=== PATIENT | female | born 1970 | race Caucasian/White ===

== ENCOUNTER 2016-12-28 11:28 | Emergency (ER) | payer OTHER ==
[~2016-12-28] VITALS: Ht 162.6 cm; Wt 100.0 kg
[2016-12-28 11:39] VITALS: Ht 162.6 cm; Wt 100.0 kg
[2016-12-28] MEDS ORDERED: morphine 4 MG/ML VIAL IV STA ×2 (12:33→13:40)
[2016-12-28] MEDS ORDERED: FAMOTIDINE 20 MG INJ IV STA (12:33)
[2016-12-28] MEDS ORDERED: ONDANSETRON 4 MG INJ IV STA ×2 (12:33→13:40)
--- NOTE | 2016-12-28 12:50 | ERD ---
ER Documentation Chief Complaint Date/Time DATE: 12/28/16 TIME: 12:47 Chief Complaint pt bib family with c/o abd pain starting few days ago, sent by PMD HPI This is a 46-year-old female who presents to the emergency department today complaining of diffuse abdominal pain that started last night. Patient states she also has nausea and diarrhea. States pain goes around her back as well. States she recently started taking Augmentin but she is unsure what for. Patient was sent here by her clinic and Pascual Le PA-C for further evaluation. Denies any fevers or chills. Denies any dysuria. ROS All systems reviewed and are negative except as per history of present illness. Medications Home Meds Active Scripts Ondansetron Hcl* (Zofran*) 4 Mg Tablet, 4 MG PO Q6H for NAUSEA AND/OR VOMITING, #30 TAB Prov:MEG DELGADO PA-C 12/28/16 Acetaminophen* (Tylophen*) 500 Mg Capsule, 1 CAP PO Q6H Y for PAIN AND OR ELEVATED TEMP, #30 CAP Prov:MEG DELGADO PA-C 12/28/16 Ibuprofen* (Motrin*) 600 Mg Tab, 600 MG PO Q6, #30 TAB Prov:MEG DELGADO PA-C 12/28/16 Hydrocodone/Acetaminophen (Flomot 5-325 Tablet) 1 Each Tablet, 1 TAB PO Q6H Y for PAIN, #12 TAB Prov:MEG DELGADO PA-C 12/28/16 Allergies Allergies: Coded Allergies: No Known Allergy (Unverified , 12/28/16) PMhx/Soc Medical and Surgical Hx: pt denies Medical Hx, pt denies Surgical Hx Hx Alcohol Use: Yes Hx Substance Use: No Hx Tobacco Use: No Smoking Status: Never smoker Physical Exam Vitals Vital Signs Date Time Temp Pulse Resp B/P Pulse Ox O2 Delivery O2 Flow Rate FiO2 12/28/16 11:39 98.3 86 16 142/70 99 Physical Exam Const: Obese, no acute distress Head: Atraumatic Eyes: Normal Conjunctiva ENT: Normal External Ears, Nose and Mouth. Neck: Full range of motion..~ No meningismus. Resp: Clear to auscultation bilaterally Cardio: Regular rate and rhythm, no murmurs Abd: Soft, diffuse abdominal tenderness worse in the epigastric and right upper quadrant region, non distended. Normal bowel sounds. No tenderness at McBurney's. Skin: No petechiae or rashes Back: No midline or flank tenderness. No CVA tenderness Neur: Awake and alert Psych: Normal Mood and Affect Result Diagram: 12/28/16 1250 12/28/16 1250 Results 24 hrs Laboratory Tests Test 12/28/16 12:50 White Blood Count 16.510^3/ul Red Blood Count 4.3610^6/ul Hemoglobin 13.3g/dl Hematocrit 39.2% Mean Corpuscular Volume 89.9fl Mean Corpuscular Hemoglobin 30.5pg Mean Corpuscular Hemoglobin Concent 33.9g/dl Red Cell Distribution Width 14.9% Platelet Count 04926^3/UL Mean Platelet Volume 10.5fl Neutrophils % 72.5% Lymphocytes % 17.5% Monocytes % 8.7% Eosinophils % 0.3% Basophils % 0.3% Nucleated Red Blood Cells % 0.0/100WBC Neutrophils # 12.010^3/ul Lymphocytes # 2.910^3/ul Monocytes # 1.410^3/ul Eosinophils # 0.110^3/ul Basophils # 0.110^3/ul Nucleated Red Blood Cells # 0.010^3/ul Urine Color YELLOW Urine Clarity SLIGHTLY CLOUDY Urine pH 8.5 Urine Specific [place] 1.015 Urine Ketones NEGATIVE Urine Nitrite NEGATIVE Urine Bilirubin NEGATIVE Urine Urobilinogen 0.2 E.U./dL Urine Leukocyte Esterase NEGATIVE Urine Microscopic RBC 0-2/HPF Urine Microscopic WBC 0-2/HPF Urine Epithelial Cells FEW Urine Amorphous Phosphates MANY Urine Bacteria MODERATE Urine Coarse Granular Casts RARE Urine Hemoglobin NEGATIVE Urine Glucose NEGATIVE% Urine Total Protein TRACE Sodium Level 143mmol/L Potassium Level 3.2mmol/L Chloride Level 99mmol/L Carbon Dioxide Level 29mmol/L Anion Gap 18 Blood Urea Nitrogen 8mg/dl Creatinine 0.61mg/dl Glucose Level 115mg/dl Calcium Level 9.0mg/dl Total Bilirubin 0.4mg/dl Direct Bilirubin 0.00mg/dl Indirect Bilirubin 0.4mg/dl Aspartate Amino Transf (AST/SGOT) 23IU/L Alanine Aminotransferase (ALT/SGPT) 36IU/L Alkaline Phosphatase 91IU/L Total Protein 7.5g/dl Albumin 4.0g/dl Globulin 3.50g/dl Albumin/Globulin Ratio 1.14 Lipase 67U/L Current Medications Medications (Trade) Dose Ordered Sig/Jamal Route PRN Reason Start Time Stop Time Status Last Admin Dose Admin Morphine Sulfate (morphine) 4 mg ONCE STAT IV 12/28/16 12:33 12/28/16 12:35 DC 12/28/16 12:47 Ondansetron HCl (Zofran Inj) 4 mg ONCE STAT IV 12/28/16 12:33 12/28/16 12:35 DC 12/28/16 12:46 Famotidine (Pepcid Iv) 20 mg ONCE STAT IV 12/28/16 12:33 12/28/16 12:35 DC 12/28/16 12:46 Morphine Sulfate (morphine) 4 mg ONCE STAT IV 12/28/16 13:40 12/28/16 13:41 DC 12/28/16 14:36 Ondansetron HCl (Zofran Inj) 4 mg ONCE STAT IV 12/28/16 13:40 12/28/16 13:41 DC 12/28/16 14:36 Potassium Chloride 40 meq 40 meq ONCE STAT PO 12/28/16 14:09 12/28/16 14:10 DC 12/28/16 14:36 Sodium Chloride (NS) 500 ml @ 500 mls/hr Q1H ONCE IV 12/28/16 15:00 12/28/16 15:59 12/28/16 15:01 DIAGNOSTIC IMAGING REPORT Patient: BANDAR CARTAGENA : 1970 Age: 46 Sex: F MR #: [id number] DOS: 12/28/16 1233 Ordering MD: MEG DELGADO PA-C Location: [facility] BEDS AT [facility] Room/Bed: PROCEDURE: CT abdomen and pelvis without contrast. CLINICAL INDICATION: Abdominal Pain TECHNIQUE: CT scan of the abdomen and pelvis without contrast was performed and is reconstructed at 2.5 mm contiguous axial intervals from the dome of the diaphragm to the inferior pubic rami.. The patient was scanned without intravenous contrast. Sagittal and coronal reformatted images were obtained from the axial source images. The calculated radiation dose measures 1259 mGy centimeters. The CTDI measures 20 mGy. COMPARISON: None. FINDINGS: The lung bases are clear of any infiltrate or nodule. No effusion is seen. The liver is of normal size, contour and attenuation with no mass or ductal dilatation. There are gallstones with probable sludge. No splenic, adrenal or pancreatic abnormalities present. Kidneys are of normal size and contour. No hydronephrosis, calculus or masses seen. Ureters are of normal course and caliber with no stone. No bladder mass or stone is present. Uterus and ovaries are normal. There is no aneurysm. No adenopathy is present. No bowel mass or obstruction is present. The appendix is normal. No phlegmon , ascites or pneumoperitoneum is visualized. The osseous structures are intact. IMPRESSION: No evidence of urolithiasis, obstructive uropathy, diverticulitis or appendicitis. .Ravi Baez MD, Date Time Electronically viewed and signed by .Ravi Baez MD, MD on 12/28/2016 13: 30 .A/ CC: MEG DELGADO PA-C Procedures/[facility] This is a 38-year-old female who presents to the emergency department today after being seen by her clinic and sent here for further evaluation. Patient had diffuse abdominal pain on physical exam however it was worse in the epigastric and right upper quadrant region. Given the diffuse nature of patient 's pain I did obtain laboratory work as well as imaging. Laboratory work shows an elevated white blood cell count of 16.5. She is not anemic. Platelets are within normal limits. Potassium is 3.2 otherwise electrolytes are within normal limits. Glucose is within normal limits. Liver function is within normal limits. Lipase is within normal limits. UA is negative for infection Urine test is negative CT abdomen and pelvis noncontrast shows gallstones with probable sludge. There are no splenic adrenal or pancreatic abnormalities. Kidneys are normal. There is no hydronephrosis, calculus or mass is seen. Uterus and ovaries are normal. There is no bowel mass or obstruction present appendix is normal. There is no evidence of diverticulitis or acute appendicitis. Given the patient's CT scan and inability to see gallbladder wall thickening or pericholecystic fluid I did obtain an ultrasound Ultrasound shows cholelithiasis with borderline gallbladder wall thickening. There is no evidence of pericholecystic fluid. Common bile duct measures 5 mm in maximal dimension there is mild hepatomegaly with fatty infiltration of the liver. No evidence of kidney stones or hydronephrosis on right kidney. There is no free fluid identified. Patient symptoms at this time was consistent with biliary colic. Low suspicion for acute surgical abdomen at this time. No evidence to suggest pancreatitis.I suspect patient's diarrhea may be caused by her Augmentin however may also be caused by viral illness. Patient was given morphine, Zofran and Pepcid here in the emergency department. Patient was complaining of some dizziness after the morphine and therefore I did give her half a liter of fluids. She will be given a prescription for Flomot , Zofran, Motrin and Tylenol for home At this time the patient is stable for discharge and outpatient management. Patient should follow up with their PCP in the next 1-2 days for referral to general surgery. They may return to the emergency department sooner for any persistent or worsening of symptoms. Patient understood and agreed with the plan. Discussed the patient with Dr. Welch and he is in agreement with the plan. Departure Diagnosis: Primary Impression: Biliary colic Additional Impression: Abdominal pain Abdominal location: generalized Qualified Code: R10.84 - Generalized abdominal pain Condition: Fair MGE DELGADO PA-C Dec 28, 2016 12:50
[2016-12-28 13:11] LABS: ADD SCAN DIFF NO
[2016-12-28 13:20] LABS: BASOPHIL # 0.1 10^3/ul (0.0-0.1); BASOPHILS % 0.3 % (0.0-2.0); EOSINOPHILS # 0.1 10^3/ul (0.0-0.5); EOSINOPHILS % 0.3 % (0.0-7.0); HEMATOCRIT 39.2 % (37.0-47.0); HEMOGLOBIN 13.3 g/dl (12.0-16.0); LYMPHOCYTES # 2.9 10^3/ul (0.8-2.9); LYMPHOCYTES % 17.5 % (15.0-51.0); MEAN CORPUSCULAR HEMOGLOBIN 30.5 pg (29.0-33.0); MEAN CORPUSCULAR HGB CONC 33.9 g/dl (32.0-37.0); MEAN CORPUSCULAR VOLUME 89.9 fl (82.0-101.0); MEAN PLATELET VOLUME 10.5 fl (7.4-10.4); MONOCYTE # 1.4 10^3/ul (0.3-0.9); MONOCYTES % 8.7 % (0.0-11.0); NEUTROPHILS % 72.5 % (39.0-77.0); PLATELET COUNT 308 10^3/UL (140-415); RED BLOOD COUNT 4.36 10^6/ul (4.20-5.40); RED CELL DISTRIBUTION WIDTH 14.9 % (11.5-14.5); WHITE BLOOD COUNT 16.5 10^3/ul (4.8-10.8)
[2016-12-28 13:26] LABS: POTASSIUM 3.2 mmol/L (3.5-5.1)
[2016-12-28 13:28] LABS: BILIRUBIN,INDIRECT 0.4 mg/dl (0-1.1); BILIRUBIN,TOTAL 0.4 mg/dl (0.2-1.3); CREATININE 0.61 mg/dl (0.44-1.00)
[2016-12-28 13:29] LABS: ALBUMIN/GLOBULIN RATIO 1.14; TOTAL PROTEIN 7.5 g/dl (6.1-8.1)
--- NOTE | 2016-12-28 13:30 | RADRPT ---
PROCEDURE: CT abdomen and pelvis without contrast. CLINICAL INDICATION: Abdominal Pain TECHNIQUE: CT scan of the abdomen and pelvis without contrast was performed and is reconstructed a t 2.5 mm contiguous axial intervals from the dome of the diaphragm to the inferior pubic rami.. The patient was scanned without intravenous contrast. Sagittal and coronal reformatted images were obt ained from the axial source images. The calculated radiation dose measures 1259 mGy centimeters. The CTDI measures 20 mGy. COMPARISON: None. FINDINGS: The lung bases are clear of any infiltrate or nodule. No effusion is seen. The liver is of normal size, contour and attenuation with no mass or ductal dilatation. There are ga llstones with probable sludge. No splenic, adrenal or pancreatic abnormalities present. Kidneys are of normal size and contour. No hydronephrosis, calculus or masses seen. Ureters are o f normal course and caliber with no stone. No bladder mass or stone is present. Uterus and ovaries are normal. There is no aneurysm. No adenopathy is present. No bowel mass or obstruction is present. The appendix is normal. No phlegmon, ascites or pneumop eritoneum is visualized. The osseous structures are intact. IMPRESSION: No evidence of urolithiasis, obstructive uropathy, diverticulitis or appendicitis. .Ravi Baez MD, MD Date Time Electronically viewed and signed by .Ravi Baez MD, on 12/28/2016 13:30 .A/
[2016-12-28 13:37] LABS: ADD UMIC YES; URINE BILIRUBIN (Dip) NEGATIVE (NEGATIVE); URINE BLOOD (Dip) NEGATIVE (NEGATIVE); URINE COLOR YELLOW (YELLOW); URINE GLUCOSE (Dip) NEGATIVE (NEGATIVE); URINE KETONES (Dip) NEGATIVE (NEGATIVE); URINE LEUKOCYTE ESTERASE (Dip) NEGATIVE (NEGATIVE); URINE NITRITE (Dip) NEGATIVE (NEGATIVE); URINE TOTAL PROTEIN (Dip) TRACE (NEGATIVE); URINE UROBILINOGEN (Dip) 0.2 E.U./dL (0.1-1.0)
[2016-12-28 14:01] LABS: BACTERIA,URINE MODERATE; URINE RBCS 0-2 /HPF (0)
[2016-12-28] MEDS ORDERED: POTASSIUM CHLORIDE (SR) 20 MEQ TAB PO STA (14:09)
--- NOTE | 2016-12-28 14:34 | RADRPT ---
PROCEDURE: US Abdomen. CLINICAL INDICATION: abdominal pain TECHNIQUE: Multiple real-time images were acquired of the patient's right upper quadrant abdomen a nd retroperitoneum utilizing a high resolution transducer. COMPARISON: 12/28/2016 FINDINGS: The liver demonstrates slightly increased echogenicity. The liver is slightly increased in size and no focal solid lesions are seen. The liver measures 18.1 cm in length. The portal vein is patent wi th normal direction of flow. No intrahepatic biliary dilatation is seen. Multiple gallstones are identified within the gallbladder. There is no pericholecystic fluid . The re is borderline gallbladder wall thickening measuring 3 mm. The common bile duct measures 5 mm in m aximal dimension. The pancreas is not seen due to overlying bowel gas. No free fluid is identified. The right kidney is normal in size, and demonstrate normal echogenicity and cortical thickness. The right kidney measures 11.6 cm in long dimension. There is no evidence of hydronephrosis. There are no kidney stones. RPTAT: AA IMPRESSION: Cholelithiasis with borderline gallbladder wall thickening. No evidence of pericholecystic fluid. Mild hepatomegaly with fatty infiltration of the liver. .Jason Cannon MD, Date Time Electronically viewed and signed by .Jason Cannon MD, MD on 12/28/2016 14:34 .S/
[2016-12-28] MEDS ORDERED: SOD CHLORIDE 0.9% 500 ML IV ONE (15:00)
[2016-12-28] MEDS ORDERED: HYDR-906 PO (15:22)
[2016-12-28] MEDS ORDERED: IBUP-1542 PO (15:22)
[2016-12-28] MEDS ORDERED: ONDA4TAB8 PO (15:23)
[2016-12-28] MEDS ORDERED: ACET500C5 PO (15:23)
[2016-12-28 15:50] VITALS: BP 132/72; PULSE 74; RESP 14; TEMP 98.1
== END 2016-12-28 15:51 | disposition home or self-care (01) ==
LOC: FTE 11:28
DX: K80.50 Calculus of bile duct without cholangitis or cholecystitis without obstruction (principal); R11.0 Nausea
CPT/HCPCS: 36415; 74176; 76705; 80053; 81001; 81003; 83690; 85025; 96374; 96375; 96376; J2270; J2405; Z7502; Z7610

== ENCOUNTER 2018-01-29 09:13 | Day surgery (SDC) | END 2018-01-29 14:15 | disposition home or self-care (01) ==